=== PATIENT | female | born 1995 | race Caucasian/White ===

== ENCOUNTER 2019-04-25 06:32 | Emergency (ER) | payer OTHER, MEDICAID ==
[~2019-04-25] VITALS: Ht 152.4 cm; Wt 60.8 kg
[2019-04-25] MEDS ORDERED: MTERYTI COMBO1 EACH PO (06:50)
[2019-04-25] MEDS ORDERED: ANTIBIOTIC (06:50)
[2019-04-25] MEDS ORDERED: PEPCID20 MG PO (07:20)
[2019-04-25] MEDS ORDERED: MEDROLDOSEPACK PO (07:20)
[2019-04-25 07:53] VITALS: BP 102/69
== END 2019-04-25 07:53 | disposition home or self-care (01) ==
LOC: M.ERS 06:32
DX: O99.712 Diseases of the skin and subcutaneous tissue complicating pregnancy, second trimester (principal); L50.9 Urticaria, unspecified; Z3A.20 20 weeks gestation of pregnancy